=== PATIENT | female | born 1965 | race Caucasian/White ===

== ENCOUNTER 2023-09-24 11:22 | Emergency (ER) | payer BC, SELFPAY ==
[2023-09-24 11:28] VITALS: BP 111/85; PULSE 111; RESP 16; TEMP 36.4; O2SAT 100
--- NOTE | 2023-09-24 11:29 | ED.SKABFB ---
HPI - Skin/Abscess/Foreign Bdy General Chief complaint: Wound/Laceration Stated complaint: Bite Right Arm Source: patient and RN notes reviewed Mode of arrival: ambulatory Limitations: no limitations History of Present Illness HPI narrative: Patient is a 58-year-old female who presents to the [facility] with complaints of possible insect bite to the right forearm. Patient states that she believed that she was bit by a spider on Sunday. She did not see the insect that bit her. She states that she initially had no wound with swelling surrounding. She states that since Sunday, the swelling has decreased. She has mild erythema surrounding the wound that is now scabbed. She is neurovascularly intact distally. Sensation is intact and she denies numbness. Related Data Home Medications Medication Instructions Recorded Confirmed dextroamphetamine-amphetamine ER 30 mg PO DAILY 09/24/23 09/24/23 30 mg 24hr capsule,extend release Review of Systems Review of Systems: CONSTITUTIONAL: Denies fever, chills, or sweats. EYES: Denies visual changes, redness, or discharge. ENT: Denies otalgia and sore throat CARDIOVASCULAR: Denies chest pain, palpitations, or edema. RESPIRATORY: Denies cough or dyspnea. GASTROINTESTINAL: Denies abdominal pain, nausea, vomiting, or diarrhea. GENITOURINARY: Denies dysuria or hematuria. SKIN: Denies rash or itching. Scabbed wound to right forearm. MUSCULOSKELETAL: Denies back pain, joint pain, or myalgia. NEUROLOGIC: Denies headache, numbness, or weakness. Pertinent positives per HPI. PMFSH Family History Family History Other Depression Family history of hepatitis Malignant neoplasm of prostate Social History Social History Alcohol intake: current Comments At the time of my signature, I reviewed and agree with the nursing past medical, surgical, social, and family history. There is no relevant family history pertinent to the patient complaint. Exam Narrative: GENERAL: This is a well-nourished, well-developed patient, in no apparent distress. HEAD: normocephalic, atraumatic. EYES: PERRL. Sclera clear/white. Vision is grossly intact. EARS: External ears normal, auditory canals clear and without drainage, TMs normal without perforation. Hearing grossly intact. NOSE: External nose normal with no obvious nasal discharge, nares without redness, no rhinorrhea. THROAT: Mucous membranes moist, posterior pharynx clear. NECK: Neck supple, non-tender without lymphadenopathy, masses or thyromegaly. CARDIOVASCULAR: Regular rate and rhythm without murmurs, gallops, or rubs. RESPIRATORY: Clear to auscultation. Breath sounds equal bilaterally. No wheezes, rales, or rhonchi. GASTROINTESTINAL: Abdomen soft, non-tender, nondistended. Bowel sounds are active. No hepato-splenomegaly, or palpable masses. No guarding. SKIN: Scabbed wound to right forearm with mild erythema. No active drainage. No ulceration. NEURO: awake, alert, and oriented to person, place and time. There were no obvious focal neurologic abnormalities. EXTREMITIES: No clubbing, cyanosis, or edema. No joint tenderness, effusion, or edema noted. BACK: Nontender without deformity or crepitance. No flank tenderness. Course Course Level of Care: Express Care Visit Vital Signs Vital signs: Vital Signs Temperature 97.6 F 09/24/23 11:28 Pulse Rate 111 H 09/24/23 11:28 Respiratory Rate 16 09/24/23 11:28 Blood Pressure 111/85 09/24/23 11:28 Pulse Oximetry 100 09/24/23 11:28 Oxygen Delivery Room Air 09/24/23 11:28 Temperature 97.6 F 09/24/23 11:28 Pulse Rate 111 H 09/24/23 11:28 Respiratory Rate 16 09/24/23 11:28 Blood Pressure 111/85 09/24/23 11:28 Pulse Oximetry 100 09/24/23 11:28 Oxygen Delivery Room Air 09/24/23 11:28 Reviewed MDM - Skin/Abscess/Foreign Bdy MDM Narrative
== END 2023-09-24 11:43 | disposition home or self-care (01) ==
PROVIDERS: Emergency Provider Nurse Practitioner
DX: S50.861A Insect bite (nonvenomous) of right forearm, initial encounter (principal); W57.XXXA Bitten or stung by nonvenomous insect and other nonvenomous arthropods, initial encounter
CPT/HCPCS: 99203; G0463